=== PATIENT | female | born 1955 | race Caucasian/White ===

== ENCOUNTER → 2020-03-07 | Outpatient (CLI) | payer OTHER ==
--- NOTE | 2020-03-07 15:21 | CT ---
EXAMINATION TYPE: CT angio chest DATE OF EXAM: 03/07/2020 COMPARISON: Chest x-ray April 07, 2019. HISTORY: Shortness of breath. CT DLP: 245.1 mGycm. Automated Exposure Control for Dose Reduction was Utilized. CONTRAST: CTA scan of the thorax is performed with IV Contrast, patient injected with 100 mL of Isovue 370, pul monary embolism protocol. MIP Images are created on CT scanner and reviewed. FINDINGS: LUNGS: Moderate underlying emphysematous change. Mild to moderate bibasilar linear scarring and/or at electasis. Suspicious 1.2 x 0.9 cm spiculated right upper lobe nodule axial image 34. No focal consol idation or groundglass opacity. No pleural effusion or pneumothorax seen bilaterally. MEDIASTINUM: There is satisfactory enhancement of the pulmonary artery and its branches, there is no CT evidence for pulmonary embolism. Satisfactory enhancement of the aorta without aneurysm or dissect ion. There is prominent but subcentimeter right hilar lymph node axial image 70. No definitive greate r than 1 cm lymph nodes. No cardiomegaly or pericardial effusion is seen. OTHER: No additional significant abnormality is seen. IMPRESSION: No CT evidence of for acute pulmonary embolism. Moderate emphysematous change without acu te pulmonary process. There is 1.2 cm spiculated right upper lung nodule, neoplasm not excluded. Foll ow-up PET/CT is advised.
== END | disposition home or self-care (01) ==
LOC: RADCTMAIN 14:26
PROVIDERS: ATTEND Internal Medicine
DX: J43.9 Emphysema, unspecified (principal); R91.1 Solitary pulmonary nodule
CPT/HCPCS: 71275; Q9967